=== PATIENT | female | born 1975 | race Caucasian/White ===

== ENCOUNTER 2021-08-11 12:37 | Emergency (ER) | payer MEDICAID ==
[~2021-08-11] VITALS: Ht 165.1 cm; Wt 59.0 kg
[2021-08-11] MEDS ORDERED: MORPHINE SULFATE 4 MG/ML CPJ (NOT FOR IM USE) IV STA (13:10)
[2021-08-11] MEDS ORDERED: ONDANSETRON HCL 4MG/2ML INJ IV STA (13:10)
[2021-08-11] MEDS ORDERED: SODIUM CHLORIDE 0.9% 1,000 ML IV ONE (13:15)
[2021-08-11 14:40] VITALS: BP 121/91
[2021-08-11] MEDS ORDERED: KETOROLAC 15MG/ML VIAL IV ONE (15:00)
[2021-08-11 15:04] LABS: BASOPHILS % 0.9 % (0.0-2.0); EOSINOPHILS % 1.4 % (0.0-5.0); HEMATOCRIT. 32.3 % (36.0-48.0); HEMOGLOBIN. 10.4 g/dL (12.0-16.0); LYMPHOCYTES % 30.5 % (20.0-50.0); MEAN CORPUSCULAR HEMOGLOBIN 26.1 pg (28.0-32.0); MEAN CORPUSCULAR VOLUME 80.7 fL (81.0-99.0); MONOCYTES % 10.4 % (2.0-8.0); NEUTROPHILS % 56.8 % (40.0-76.0); PLATELET 328 x1000/uL (130-400); RED BLOOD CELL COUNT 4.01 mill/uL (4.2-5.4); RED CELL DISTRIBUTION WIDTH 14.8 % (11.6-14.6)
[2021-08-11 15:11] LABS: CHLORIDE 105 mEq/L (98-107)
[2021-08-11 15:21] LABS: HCG SCREEN NEGATIVE
[2021-08-11] MEDS ORDERED: IBUP-2028 MT (15:29)
== END 2021-08-11 16:00 | disposition home or self-care (01) ==
LOC: ER 13:13
DX: S09.8XXA Other specified injuries of head, initial encounter (principal); M54.2 Cervicalgia; F12.10 Cannabis abuse, uncomplicated; D64.9 Anemia, unspecified; M25.551 Pain in right hip; W18.39XA Other fall on same level, initial encounter; Y93.89 Activity, other specified; Y92.89 Other specified places as the place of occurrence of the external cause; Y99.8 Other external cause status
CPT/HCPCS: 36415; 70450; 71045; 72125; 73502; 80053; 84703; 85025; 99285; J7030

== ENCOUNTER 2024-07-21 12:09 | Emergency (ER) | payer SELFPAY ==
[~2024-07-21] VITALS: Ht 162.6 cm; Wt 50.0 kg
[~2024-07-21 12:09] MED LIST: IBUP-2028 MT
[2024-07-21 12:13] VITALS: O2SAT 98
[2024-07-21] MEDS: LIDOCAINE 5% PATCH TOP SCH (14:43)
[2024-07-21] MEDS: ACETAMINOPHEN 325MG TABLET PO ONE (14:44)
[2024-07-21] MEDS: KETOROLAC 30MG/ML VIAL IM ONE (14:44)
[2024-07-21 14:48] VITALS: TEMP 36.6
[2024-07-21] MEDS ORDERED: LIDO-53 TP (15:15)
[2024-07-21] MEDS ORDERED: KETO10TA2 MT (15:15)
[2024-07-21] MEDS ORDERED: CYCL10TA21 MT (15:15)
[2024-07-21 15:32] VITALS: BP 125/76; PULSE 89; RESP 16; O2SAT 100
== END 2024-07-21 15:43 | disposition home or self-care (01) ==
LOC: ER 12:09
DX: M25.552 Pain in left hip (principal); M25.562 Pain in left knee; F12.10 Cannabis abuse, uncomplicated; I10 Essential (primary) hypertension; Z79.899 Other long term (current) drug therapy
CPT/HCPCS: 73502; 73560; 96372; 99284; J1885; Z7610